=== PATIENT | female | born 1990 | race Hispanic/Latino ===

== ENCOUNTER 2017-02-16 14:49 | Emergency (ER) | payer OTHER ==
[~2017-02-16] VITALS: Ht 144.8 cm; Wt 70.5 kg
[~2017-02-16 14:49] MED LIST: NOMED
[2017-02-16 15:00] VITALS: BP 151/106; PULSE 124; RESP 18; O2SAT 100
[2017-02-16] MEDS ORDERED: 0.9% Sodium Chloride 1,000 ML IV ONE ×2 (15:26→17:10)
--- NOTE | 2017-02-16 15:31 | ED.REPORT ---
HPI- Female Date of Service Feb 16, 2017 ED Provider: Manish Evangelista PA-C Heather is an otherwise healthy 26-year-old female presented with a chief complaint of heavy menstrual bleeding. Patient reports a several month history of irregular, intermittent bleeding sometimes heavy, sometimes light and occasionally stopping altogether. She reports an increase in bleeding with dark clots on February 05. Seen at the urgent care on February 07, negative obtained and placed on Provera, which reduced her bleeding but did not stop it. This is discontinued after one week and heavy bleeding resumed. Reports bleeding through 8 pads today. Admits to cramping this morning but currently denies pain, dizziness, presyncope, fever, urinary symptoms, history of STI, PID. No history of ectopic . She does not use control and does not have a primary care provider at this time. Nursing Notes Stated Complaint: HEAVY MENSTRAL BLEEDING Chief Complaint: General Complaint Nursing Notes Reviewed: Yes Allergies: Coded Allergies: No Known Allergies (Verified Allergy, Unknown, 02/16/17) Scheduled Levonorgestrel/Ethinyl Estradiol (Marlissa) 1 Each Tablet 1 TABLET PO DAILY Miscellaneous Medications No Historical Medication (No Historical Medication) Ea General Time Seen by MD: 15:10 Chief Complaint Vaginal bleeding... (Moderate) Sudden in Onset?: No Past Medical History Past Medical History Denies Review of Systems Review of Systems Note: Negative unless stated otherwise in history of present illness Physical Exam General: Well appearing, well developed, well nourished, no acute distress. Head: Atraumatic, normocephalic. Eyes: No scleral icterus or injection. No discharge. Vision grossly intact. ENT: Voice clear, hearing grossly intact. Respiratory: Regular rate and rhythm. Breath sounds present, clear to auscultation and equal bilaterally. No respiratory distress. No increased work of breathing, speaks in complete sentences. Cardiovascular: Regular rate and rhythm, without murmur, gallop or rub. No pedal edema. Gastrointestinal: Abdomen flat and non-tender without guarding or rebound. Bowel sounds normoactive. : Normal external genitalia without rashes or lesions. No discharge noted, slight external bleeding noted. Speculum examination reveals a normal-appearing , nonfriable cervix with a moderate amount of bright red blood, no clots noted or discharge. No lesions or masses. Negative cervical motion tenderness, negative adnexal tenderness. Skin: Warm and dry. Neurological: Grossly nonfocal. Psychological: Alert and oriented. Speech appropriate, linear and logical. Behavior appropriate. Initial Vital Signs Vital Signs (First) Date Time Temp Pulse Resp B/P Pulse Ox O2 Delivery O2 Flow Rate FiO2 02/16/17 15:00 36.7 124 18 151/106 100 Room Air Interpretation & Diagnostics Lab Results Interpretation Result Diagram: 02/16/17 1544 02/16/17 1544 Test 02/16/17 15:44 02/16/17 17:23 White Blood Count 11.1th/mm3 (3.8-10.1) Red Blood Count 4.53mil/mm3 (3.90-5.20) Hemoglobin 12.6g/dL (12.0-15.6) Hematocrit 38.9% (35.0-46.0) Mean Corpuscular Volume 85.9fL (81-100) Mean Corpuscular Hemoglobin 27.8pg (27.0-35.0) Mean Corpuscular Hemoglobin Concent 32.4% (32.0-37.0) Red Cell Distribution Width 13.2% (12.3-15.4) Platelet Count 425bil/L (150-400) Neutrophils (%) (Auto) 68.2% (40-74) Lymphocytes (%) (Auto) 26.3% (14-46) Monocytes (%) (Auto) 3.2% (4-12) Eosinophils (%) (Auto) 1.4% (0-5) Basophils (%) (Auto) 0.6% (0-3) Prothrombin Time 9.6sec (8.1-12.5) Prothromb Time International Ratio 0.90ratio Sodium Level 139mEq/L (134-144) Potassium Level 3.8mEq/L (3.5-5.2) Chloride Level 101mEq/L (97-108) Carbon Dioxide Level 19mmol/L (18-29) Blood Urea Nitrogen 7mg/dL (6-20) Creatinine 0.51mg/dL (0.57-1.00) Estimat Glomerular Filtration Rate 212mL/min (>59) Glucose Level 105mg/dL (60-99) Calcium Level 9.0mg/dL (8.5-10.1) Total Bilirubin 0.2mg/dL (0.0-1.2) Aspartate Amino Transf (AST/SGOT) 43U/L (0-50) Alanine Aminotransferase (ALT/SGPT) 72U/L (0-32) Alkaline Phosphatase 110U/L (25-150) Total Protein 7.9g/dL (6.4-8.4) Albumin 4.2g/dL (3.4-5.0) Human Chorionic Gonadotropin, Qual Negative (Negative) Hold Urine Received (Received) Re-Eval/Medical Decision Med Decision/Clinical Course Otherwise healthy 26-year-old female presents with a chief complaint of heavy menstrual bleeding. Reports intermittent, irregular bleeding for last several months. Recently increased and the patient was seen at urgent care. Given one week of Provera which lightened her bleeding. Heavy bleeding returned after discontinuation. Admits cramping this morning. Denies fever, pain, , history of PID, STD, ectopic. Patient does not have a primary care provider at this time. Physical examination reveals a well appearing patient. External genitalia are normal with a slight amount of bleeding noted. Speculum examination reveals a normal-appearing cervix with some moderate bright red bleeding, no clots or discharge noticed. Negative CMT or adnexal tenderness. Tachycardia in the 120s noted at triage. Physical examination is otherwise benign with absolutely nontender abdomen. Pelvic exam was performed with a music intern. Initiated treatment 1 L normal saline, CBC, CMP, PT/INR, serum hCG. Ordered orthostatics. CBC reveals a mild leukocytosis which is not thought to be clinically significant, CMP is unremarkable PT/INR is normal and serum hCG is negative. Vital signs show only minimal change with orthostatics, however the patient continues to be tachycardic. Tachycardia resolved with a second liter of saline. I discussed this case with Dr. Rock. We believe this is most likely dysfunctional uterine bleeding, we are reassured against ectopic , , hemorrhage, PID, tubo-ovarian abscess. He recommends oral contraception to reduce bleeding and primary care follow-up. The patient has [facility] for next Monday. Selected oral contraceptive with the help of a pharmacist, who also counseled the patient on its use. Discussed all findings with the patient and answered questions to the best of my ability. Advised regarding primary care follow-up, provided emergency return precautions. Patient verbalized understanding of, and consent to, the plan. Discharge & Departure Impression: Primary Impression: Dysfunctional uterine bleeding Disposition: Home Discharge Condition All VS Reviewed: Yes Condition: Stable Patient Instructions: Dysfunctional Uterine Bleeding (ED) Additional Instructions: Evaluation for vaginal bleeding in the emergency department includes interview, physical examination and blood tests all of which are reassuring that the bleeding is not caused by an immediately dangerous condition. He appeared to be stable and safe to be discharged home. I have given you a prescription for an oral contraceptive which should help to suppress the bleeding. I recommended using a second form of contraception for the next month to avoid . [facility]. Return to emergency department for new or worsening symptoms including dizziness , increasing pain, fever or increasing bleeding. Referrals: Jazmine Govea MD (PCP) EDSupervising Provider for APC: Abdulkadir Rock MD copies to: Jazmine Govea MD, Seth PA-C Feb 16, 2017 15:31
[2017-02-16 15:48] LABS: BASOPHILS % (AUTO) 0.6 % (0-3); EOSINOPHILS % (AUTO) 1.4 % (0-5); MONOCYTES % (AUTO) 3.2 % (4-12); Mean Corpuscular Hemoglobin 27.8 pg (27.0-35.0); Mean Corpuscular Volume 85.9 fL (81-100); NEUTROPHILS % (AUTO) 68.2 % (40-74); Platelet Count 425 bil/L (150-400)
[2017-02-16 16:07] LABS: INR 0.9 ratio
[2017-02-16 16:15] VITALS: BP 129/79; PULSE 109; O2SAT 100
[2017-02-16 16:20] VITALS: BP 131/88; PULSE 111; O2SAT 99
[2017-02-16 16:25] VITALS: BP 136/88; PULSE 113; O2SAT 99
[2017-02-16 18:05] VITALS: PULSE 102
[2017-02-16] MEDS ORDERED: LEVO1TAB71 PO (18:54)
[2017-02-16 19:07] VITALS: BP 141/93; PULSE 86; RESP 16; O2SAT 100
== END 2017-02-16 19:08 | disposition home or self-care (01) ==
LOC: SED 14:49
DX: N93.8 Other specified abnormal uterine and vaginal bleeding (principal)
CPT/HCPCS: 36415; 80053; 84703; 85025; 85610; 96360; 96361; 99284; J7030